=== PATIENT | female | born 1980 | race Caucasian/White ===

== ENCOUNTER → 2018-10-31 | Day surgery (SDC) | payer OTHER ==
[~2018-10-31] MED LIST: IV RINGERS,LACTATED 1000ML 1,000 ML IV SCH; LEVO100T5 PO; LIDOCAINE 1% PF 2 ML VIAL. ID PRN; MIDAZOLAM HCL/PF 2 MG/2 ML VIAL. IV PRN; NIFE60TA16 PO; PROPOFOL 40 ML IV ONE; fentaNYL PF VIAL 100 MCG/2 ML VIAL IV PRN
[2018-10-31 09:57] LABS: U PREG PATIENT NEGATIVE (NEG)
[2018-10-31 10:57] VITALS: BP 115/73
--- NOTE | 2018-10-31 11:09 | PREOP HP ---
DATE OF SERVICE: DATE OF PROCEDURE: 10/31/2018 REQUESTING PHYSICIAN: Roosevelt Garcia MD REASON FOR PROCEDURE: Family history of colon cancer and personal history of colon polyps. HISTORY OF PRESENT ILLNESS: This is a 38-year-old female who presents for colon cancer screening. She does have a history of polyps on her last colonoscopy with Dr. Angelica Apple in 2009. Her maternal grandfather had colon cancer in his 50s. ALLERGIES: 1. ALOE VERA. 2. PENICILLIN. PAST MEDICAL HISTORY: Colon polyps and hypothyroidism as well as high blood pressure. FAMILY MEDICAL HISTORY: Colon cancer. REVIEW OF SYSTEMS: A 13-point review of systems was done. It is positive as per HPI and otherwise negative. PHYSICAL EXAMINATION: GENERAL: She is a well-developed, well-nourished female, in no apparent distress. HEENT: Oropharynx clear. CARDIOVASCULAR: S1, S2. LUNGS: Clear. ABDOMEN: Normoactive bowel sounds, soft, nontender, nondistended. EXTREMITIES: No edema. NEUROLOGIC: Awake, alert and oriented x 3. ASSESSMENT AND PLAN: History of polyp. The risks and benefits of the procedure including bleeding, perforation, non-diagnosis and sedation were explained. She has agreed to proceed. DWAYNE MÉNDEZ MD DR: KAT/jeramy JOB#: [id number] / [id number]
--- NOTE | 2018-11-01 16:07 | PATHOLOGY ---
[facility] Accession Number: [id number] . 01 Material submitted: . SIGMOID POLYP BIOPSY . 01 Clinical history: . Screening, Hx polyps . 02 Diagnosis: Colon biopsies, sigmoid colon polyps: - Hyperplastic polyps. (M:[facility] 11/01/2018) P/11/01/2018 . 02 Comment: There are no adenomatous changes or evidence of malignancy. (M:[facility] 11/01/2018) . 02 Electronically signed: . Sourav Rivera MD, Pathologist NPI- [id number] . 01 Gross description: . Received in formalin labeled "Bernice Blackwood, sigmoid colon polyp BX," are 2 segments of olson soft tissue measuring 1.3 x 0.3 x 0.2 cm in aggregate dimensions and ranging from 0.3 to 0.8 cm in maximum dimension. The specimen is submitted entirely in cassette A1. ([facility]; 10/31/2018) TOB/TOB . 02 Pathologist provided ICD-10: K63.5 . 02 CPT . 007874 Specimen Comment: A courtesy copy of this report has been sent to Specimen Comment: [phone], . Specimen Comment: Report sent to / DR SANCHEZ Specimen Comment: A duplicate report has been generated due to demographic updates. Performed at: 01 [facility] [address], [place] [id number] MD Leroy Crawley MD Phone: [phone] Performed at: 02 [facility] [address] [place], [place] [id number] MD Sourav Rivera MD Phone: [phone]
== END | disposition home or self-care (01) ==
LOC: SURG 09:26
PROVIDERS: ATTEND Internal Medicine Gastroenterology
DX: Z12.11 Encounter for screening for malignant neoplasm of colon (principal); K63.5 Polyp of colon; K64.0 First degree hemorrhoids; E03.9 Hypothyroidism, unspecified; I10 Essential (primary) hypertension; Z86.010 Personal history of colon polyps; Z80.0 Family history of malignant neoplasm of digestive organs; Z88.0 Allergy status to penicillin; Z88.8 Allergy status to other drugs, medicaments and biological substances
CPT/HCPCS: 45380; 81025; 88305; J2704